=== PATIENT | male | born 1975 | race Caucasian/White ===

== ENCOUNTER 2018-07-28 03:08 | Emergency (ER) | payer MEDICAID, SELFPAY ==
[2018-07-28] VITALS (7 sets, daily range): BP systolic 106–122; BP diastolic 70–81; PULSE 99–114; RESP 16–21; TEMP 37.1; O2SAT 95–98
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
== END 2018-07-28 04:57 | disposition home or self-care (01) ==
PROVIDERS: Emergency Provider Emergency Medicine; PCP Physician Assistant Medical
DX: S09.90XA Unspecified injury of head, initial encounter (principal); S02.2XXA Fracture of nasal bones, initial encounter for closed fracture; S01.01XA Laceration without foreign body of scalp, initial encounter; S29.001A Unspecified injury of muscle and tendon of front wall of thorax, initial encounter; V48.9XXA Unspecified car occupant injured in noncollision transport accident in traffic accident, initial encounter; Y35.813A Legal intervention involving manhandling, suspect injured, initial encounter; I10 Essential (primary) hypertension; E11.9 Type 2 diabetes mellitus without complications
CPT/HCPCS: 71250; 99285; 70450; 70486; 72125